=== PATIENT | male | born 1960 | race Caucasian/White ===

== ENCOUNTER 2024-03-22 15:24 | Outpatient (CLI) | payer BC, SELFPAY | END 2024-03-22 15:25 | disposition home or self-care (01) | PROVIDERS: Visit Provider Urology | DX: R97.20 Elevated prostate specific antigen [PSA] (principal); Z01.818 Encounter for other preprocedural examination | CPT/HCPCS: 87086 ==

== ENCOUNTER 2024-03-29 00:57 | Day surgery (SDC) | payer BC, SELFPAY ==
--- NOTE | 2024-03-16 12:56 | PC.NURSE ---
Report to the Outpatient Waiting Room, entrance under the green pavilion located off [facility], at time _0645 on date _03/29/24_. Planned Procedure Time: __0845_.? Time changes happen often and if your time is changed the preop area will call you the afternoon before. - You and your visitor will be asked to self-screen and do not enter if you have any COVID symptoms. Please call surgeon if you need to reschedule. - A mask is optional within the hospital at this time. Patients may have clear liquids (water, carbonated beverages, clear teas, apple juice) until 3 hours prior to surgery with a maximum of 20 ounces. - No food from midnight until time of surgery and no smoking. This includes no chewing gum, candy or mints. - Infants may have breast milk until 4 hours before surgery, infant formula 6 hours prior to surgery. - Children will be allowed to drink immediately following surgery.? If applicable, please bring a bottle or sippy cup to assist with drinking. Juice, water, soda, and popsicles are readily available.? For infants on formula, please bring formula the day of surgery.? Pacifiers are allowed. Take only the following medications with a SIP of water on the morning of surgery: NONE DO NOT STOP ANY OF YOUR OTHER PRESCRIPTION MEDICATIONS PRIOR TO SURGERY EXCEPT THE FOLLOWING Medications to discontinue per physician NONE Date to take last dose Please no make-up, nail italian, hairspray, perfume, deodorant, or body powder the day of surgery.? No jewelry (including any body piercings) or valuables the day of surgery, leave them at home.? Please take a shower or bath the night before, or the morning of, surgery with an antibacterial soap.? Wear comfortable, loose fitting clothing.? Children are encouraged to wear pajamas. - Jewelry must be removed prior to entering the operating room.? Rings and piercings that are not removed may be cut off. - The hospital will not accept responsibility for valuables.? - Please leave all valuables, including medications, at home the day of surgery. If you are going home after surgery, a licensed mail truck driver must drive you home.? - NO public transportation without another adult if you receive anesthesia. - We recommend that an adult stay with you for 24 hours following discharge. - We also recommend that you do not drive, make important decision, drink alcoholic beverages, or take any drugs that were not prescribed by your health care provider for at least 24 hours after your discharge time. For Pediatric surgeries, we recommend two adults accompany the child home. Follow any additional instructions given to you from your surgeon. Telephone instructions given to _PATIENT__and asked if any additional questions and then verbalized understanding. Patient advised to call surgeon office or pre surgery nurse liaison [phone] if any additional questions.
[2024-03-16 13:02] VITALS: BMI 41.2
[2024-03-29 06:33] VITALS: BP 129/82; PULSE 66; RESP 18; TEMP 36.4; O2SAT 100; BMI 43.6
[2024-03-29] MEDS: LACTATED RINGERS 1,000 ML 30 ML IV CONT (06:50)
--- NOTE | 2024-03-29 07:32 | PM.IMHP ---
H&P: HPI History of Present Illness Date/Time: 03/29/24 07:32 Chief Complaint: elevated psa Narrative: 63 yr old male with elevated psa and abn mri with indeterminate lesion. Here for uronav us and prostate biopsy Review of Systems Review of Systems: All systems reviewed & are unremarkable except as noted in HPI and below [facility] Social History Social History Smoking status: Never smoker Drinks per week: 2 Living arrangements: with family Meds Home Medications and Allergies Home Medications ?Medication ?Instructions ?Recorded ?Confirmed ?Type No Home Medications 03/16/24 03/16/24 History Allergies Allergy/AdvReac Type Severity Reaction Status Date / Time No Known Allergies Allergy Verified 03/16/24 12:50 Vital Signs Vital Signs - 24 hr 03/29/24 06:33 Temperature 36.4 C L Pulse Rate 66 Respiratory Rate 18 Blood Pressure 129/82 Pulse Oximetry 100 Oxygen Delivery Room Air Exam Const: General: cooperative and comfortable Resp: Effort & Inspection: normal respiratory effort Cardio: Rate: regular rate Rhythm: regular rhythm Assessment and Plan Assessment and plan (1) Elevated PSA: Code(s): R97.20 - Elevated prostate specific antigen [PSA] Status: Acute Assessment and Plan: uronav us and prostate biopsy
--- NOTE | 2024-03-29 07:34 | WPDHPUPDATE1 ---
History and Physical Update Update Date/Time: 03/29/24 07:34 History and Physical has been reviewed, including an updated exam of the patient. There are NO changes in the patient's condition. Risks, benefits, and alternatives have been discussed and questions answered. Patient agrees to proceed with procedure.
--- NOTE | 2024-03-29 08:14 | P.PNAN_ITS ---
Anes - Initial Pre Proc Eval Procedure: Operation Date: 03/29/24 08:45 Proposed Procedures p Trans Rectal Ultrasound Fusion Guided Prostate Biopsy - Harvey Ralph MD Date/Time: 03/29/24 08:14 Surgeon: Harvey Ralph MD Pre Op Diagnosis: elevated psa Patient Data Age: 63 Gender: M Height: 1.73 m Weight: 130.1 kg Last Vital Signs Temp 36.4 C L 03/29/24 06:33 Pulse 66 03/29/24 06:33 Resp 18 03/29/24 06:33 BP 129/82 03/29/24 06:33 Pulse Ox 100 03/29/24 06:33 O2 Del Method Room Air 03/29/24 06:33 Allergies Allergy/AdvReac Type Severity Reaction Status Date / Time No Known Allergies Allergy Verified 03/16/24 12:50 Home Medications ?Medication ?Instructions ?Recorded ?Confirmed ?Type No Home Medications 03/16/24 03/16/24 History Patient hx anesthesia problems: none Family hx anesthesia problems: none Results Review: All pre-operative results and documents have been reviewed as part of the pre- operative evaluation. [facility] Social History Social History Smoking status: Never smoker Drinks per week: 2 Living arrangements: with family Anes - Eval Final PreProcedure Day of Procedure 03/29/24 08:14 Patient weight: morbidly obese Heart: regular rate and rhythm Lungs: clear to auscultation Airway: Mallampati scale class II Neurological: alert and oriented Last oral intake: >/= 8 hours ASA classification: III Emergent: no Anesthetic plan: proceed Anesthesia type and monitoring: general GIVS and LMA and standard monitoring Results Review: All pre-operative results and documents have been reviewed as part of the pre- operative evaluation. Informed Consent: The patient's anesthetic plan and its attendant risks and benefits were discussed with the patient/family/POA. Questions were solicited and answers provided to the satisfaction of the patient/family/POA.
[2024-03-29] MEDS: ceFAZolin 3 GM/D5W 100 ML 100 ML IVPB (09:02)
--- NOTE | 2024-03-29 09:22 | W.PM.PROC2 ---
Procedure Note - Detailed Date of Procedure 03/29/24 Pre-op Diagnosis elevated psa Post-op Diagnosis Same Procedure Performed Uronav us and prostate biopsy Surgeon Harvey Ralph MD Anesthesia General Description of Procedure Patient was taken to the operative suite correctly identified. Once anesthesia was obtained was on his decubitus position. Transrectal ultrasound probe was inserted. The MRI image was fused to the ultrasound machine. The region of interest was visualized in 4 cores were taken from this area. Twelve other standard cores were taken. Patient tolerated procedure well without complications and was taken recovery stable condition. He will call for results in a week. This completes dictation. Please send a copy of op note to my office
[2024-03-29 09:24] VITALS: BP 98/47; PULSE 57; RESP 16; O2SAT 95
[2024-03-29 09:40] VITALS: BP 96/55; O2SAT 98
[2024-03-29 09:50] VITALS: BP 123/75; PULSE 58
[2024-03-29 10:15] VITALS: BP 116/64; PULSE 56; RESP 18
== END 2024-03-29 10:25 | disposition home or self-care (01) ==
PROVIDERS: Visit Provider Urology
PROC: (CPT 55700; principal; 2024-03-29 08:45)
DX: C61 Malignant neoplasm of prostate (principal); N41.1 Chronic prostatitis; E66.01 Morbid (severe) obesity due to excess calories; Z68.41 Body mass index [BMI] 40.0-44.9, adult
CPT/HCPCS: 76872; 55700; 88342; G0416; J0690; J2004; J2704; J3010; J7120